=== PATIENT | female | born 1965 | race American Indian/Alaskan Native ===

== ENCOUNTER 2017-03-18 14:14 | Emergency (ER) | payer BC ==
--- NOTE | 2017-03-18 19:53 | Emergency Department Report ---
HPI - General Chief Complaint: Allergic Reaction Time Seen by Provider: 03/18/17 18:17 - HPI HPI: 52-year-old female past medical history obesity, prediabetes, hypertension, eczema presents with complaint of one month of progressively pulp drier skin. Patient denies any fevers chills nausea vomiting denies any recent travel. States that she was started on metformin over a month ago to control her A1c as per her primary care doctor. Patient states that over the last 3 weeks she has noticed that she has developed slightly itchy ear skin than usual at baseline. Patient has chronic itchy skin due to eczema on her joints upper extremities and hands. Patient states that she has noticed slight dark discoloration around her neck back and upper extremities in patches and plaques associated with "ashy" skin. Patient denies any significant swelling of her face lips denies any overt hives. Patient denies any new cosmetics new pets any linens or new clothing. Patient is awake alert and oriented 3 not in acute distress no audible wheezing or stridor on exam. ED Past Medical Hx - Past Medical History Hx Hypertension: Yes Additional medical history: ECZEMA. OBESITY - Surgical History Additional Surgical History: hernia repair 2001, D&C in 1989, colonic polyps removed - Social History Smoking Status: Never Smoker Substance Use Type: None - Medications Home Medications: Home Medications Medication Instructions Recorded Confirmed Last Taken Type Albuterol Sulfate [Ventolin HFA] 2 puff IH Q4H PRN #1 hfa.aer.ad 08/03/13 Unknown Rx Amoxicillin [Trimox CAP] 500 mg PO BID #14 capsule 08/03/13 Unknown Rx Benzonatate [Tessalon] 200 mg PO Q8H #30 capsule 08/03/13 Unknown Rx Hydrocodone Bit/Acetaminophen 1 - 2 each PO Q4-6H PRN #12 tablet 08/03/13 Unknown Rx [Lortab 5-500 Tablet] Prednisone 40 mg PO QDAY #8 tablet 08/03/13 Unknown Rx hydrOXYzine HCL [Atarax] 25 mg PO Q6HR PRN #25 tablet 03/18/17 Unknown Rx ED Review of Systems ROS: Stated complaint: POSS ALLERGIC REACTION TO BP MEDS Other details as noted in HPI Constitutional: denies: chills, fever Eyes: denies: eye pain, eye discharge, vision change ENT: denies: ear pain, throat pain Respiratory: denies: cough, shortness of breath, wheezing Cardiovascular: denies: chest pain, palpitations Endocrine: no symptoms reported Gastrointestinal: denies: abdominal pain, nausea, diarrhea Genitourinary: denies: urgency, dysuria, discharge Musculoskeletal: denies: back pain, joint swelling, arthralgia Skin: as per HPI, rash. denies: lesions Neurological: denies: headache, weakness, paresthesias Psychiatric: denies: anxiety, depression Hematological/Lymphatic: denies: easy bleeding, easy bruising Physical Exam - Physical Exam Vital Signs: Vital Signs 03/18/17 14:55 Temperature 97.9 F Pulse Rate 107 H Respiratory 19 Rate Blood Pressure 111/76 O2 Sat by Pulse 97 Oximetry General: General: Well appearing, well nourished, in no distress. Oriented x 3, normal mood and affect . Ambulating without difficulty. Skin: brownish velvety hyperpigmentation of the skin near neck, back and upper arms, dry skin near joints Head: Normocephalic, atraumatic, no visible or palpable masses, depressions, or scaring. Pharynx: Mucosa non-inflamed, no tonsillar hypertrophy or exudate. oropharnyx is patent Neck: Supple, without lesions, bruits, or adenopathy, thyroid non-enlarged and non-tender Heart: No cardiomegaly or thrills; regular rate and rhythm, no murmur or gallop Lungs: Clear to auscultation b/l Abdomen: Bowel sounds normal, no tenderness, organomegaly, masses, or hernia Back: Spine normal without deformity or tenderness, no CVA tenderness Musculoskeletal: Normal gait and station. Neurologic: CN 2-12 normal. Sensation to pain, touch, and proprioception normal. DTRs normal in upper and lower extremities. No pathologic reflexes. ED Course Vital Signs 03/18/17 14:55 Temperature 97.9 F Pulse Rate 107 H Respiratory 19 Rate Blood Pressure 111/76 O2 Sat by Pulse 97 Oximetry ED Medical Decision Making - Medical Decision Making A/P: Acanthosis nigricans 1-as patient has a hemoglobin A1c of 6.5 and has been experiencing slightly hyperpigmented skin around skin folds patient likely is experiencing acanthosis nigricans development 2-patient has no overt systemic signs of illness other than dry her skin and hyperpigmented skin. Does not appear to be a desquamating rash. No fever or chills reported 3-hydroxyzine when necessary, I advised patient to remain well-hydrated and to maintain her current diabetes regimen as her primary doctor's advice. I advised patient to use Aquaphor skin lotion and a and D ointment to maintain hydration of her skin 4-I provided patient with information for dermatology follow-up Critical care attestation.: If time is entered above; I have spent that time in minutes in the direct care of this critically ill patient, excluding procedure time. ED Disposition Clinical Impression: Acanthosis nigricans Disposition: DISCHARGED TO HOME OR SELFCARE Is pt being admited?: No Does the pt Need Aspirin: No Condition: Stable Instructions: Itchy Skin (ED) Prescriptions: hydrOXYzine HCL [Atarax] 25 mg PO Q6HR PRN #25 tablet PRN Reason: Itching Referrals: CASSANDRA HERNÁNDEZ MD [Staff Physician] - 3-5 Days [facility] [Provider Group] - 3-5 Days Forms: Work/School Release Form(ED) Time of Disposition: 19:50
[2017-03-18 20:07] VITALS: BP 122/85
== END 2017-03-18 20:07 | disposition home or self-care (01) ==
LOC: ED 14:14
DX: L83 Acanthosis nigricans (principal); I10 Essential (primary) hypertension
CPT/HCPCS: 82962; 99282

== ENCOUNTER 2017-09-02 03:08 | Emergency (ER) | payer BC ==
[2017-09-02] MEDS ORDERED: XOPENEX IH ONE (03:52)
[2017-09-02] MEDS ORDERED: ATROVENT IH ONE (03:52)
[2017-09-02 03:58] LABS: Eosinophils % (Auto) 9.2 % (0.0-4.3); Hematocrit 41.8 % (30.3-42.9); Hemoglobin 13.9 gm/dl (10.1-14.3); Mean Corpuscular HGB Conc 33 % (30-34); Mean Corpuscular Hemoglobin 29 pg (28-32); Mean Corpuscular Volume 86 fl (79-97); Platelet Count 214 K/mm3 (140-440); Red Blood Count 4.87 M/mm3 (3.65-5.03); Red Cell Distribution Width 15.5 % (13.2-15.2); White Blood Count 10.4 K/mm3 (4.5-11.0)
--- NOTE | 2017-09-02 03:58 | Emergency Department Report ---
ED Shortness of Breath HPI - General Chief Complaint: Upper Respiratory Infection Stated Complaint: SOB Time Seen by Provider: 09/02/17 03:42 Source: patient Mode of arrival: Ambulatory Limitations: No Limitations - History of Present Illness Initial Comments: Patient is 52 years old female morbidly obese history of hypertension came to the ER with a 2 day history of cough and shortness of breath start all of a sudden. Patient stated that she went to an urgent care she was given a breathing treatment did help for minutes but not much higher shortness of breath is worse when she is coughing. Coughing is nonproductive. Patient denied fever, no nausea no vomiting. No chest pain. MD Complaint: shortness of breath, cough -: days(s) (2 days) Pain Scale: 4 Consistency: constant Improves With: nothing Worsens With: coughing - Related Data Previous Rx's Medication Instructions Recorded Last Taken Type Albuterol Sulfate [Ventolin HFA] 2 puff IH Q4H PRN #1 hfa.aer.ad 08/03/13 Unknown Rx Amoxicillin [Trimox CAP] 500 mg PO BID #14 capsule 08/03/13 Unknown Rx Benzonatate [Tessalon] 200 mg PO Q8H #30 capsule 08/03/13 Unknown Rx Hydrocodone Bit/Acetaminophen 1 - 2 each PO Q4-6H PRN #12 tablet 08/03/13 Unknown Rx [Lortab 5-500 Tablet] Prednisone 40 mg PO QDAY #8 tablet 08/03/13 Unknown Rx hydrOXYzine HCL [Atarax] 25 mg PO Q6HR PRN #25 tablet 03/18/17 Unknown Rx Allergies Allergy/AdvReac Type Severity Reaction Status Date / Time pineapple AdvReac Itching Verified 03/18/17 14:55 shrimp AdvReac LIPS / Verified 03/18/17 14:55 TONGUE TINGLE ED Review of Systems ROS: Stated complaint: SOB Other details as noted in HPI Comment: All other systems reviewed and negative Constitutional: denies: chills, fever Respiratory: cough, shortness of breath, SOB with exertion. denies: orthopnea Cardiovascular: dyspnea on exertion. denies: chest pain, palpitations, edema, paroxysmal nocturnal dyspnea Gastrointestinal: denies: abdominal pain, nausea, vomiting Neurological: denies: headache, weakness ED Past Medical Hx - Past Medical History Previous Medical History?: Yes Hx Hypertension: Yes Additional medical history: ECZEMA. OBESITY - Surgical History Past Surgical History?: Yes Additional Surgical History: hernia repair 2001, D&C in 1989, colonic polyps removed - Social History Smoking Status: Never Smoker Substance Use Type: None - Medications Home Medications: Home Medications Medication Instructions Recorded Confirmed Last Taken Type Albuterol Sulfate [Ventolin HFA] 2 puff IH Q4H PRN #1 hfa.aer.ad 08/03/13 Unknown Rx Amoxicillin [Trimox CAP] 500 mg PO BID #14 capsule 08/03/13 Unknown Rx Benzonatate [Tessalon] 200 mg PO Q8H #30 capsule 08/03/13 Unknown Rx Hydrocodone Bit/Acetaminophen 1 - 2 each PO Q4-6H PRN #12 tablet 08/03/13 Unknown Rx [Lortab 5-500 Tablet] Prednisone 40 mg PO QDAY #8 tablet 08/03/13 Unknown Rx hydrOXYzine HCL [Atarax] 25 mg PO Q6HR PRN #25 tablet 03/18/17 Unknown Rx ED Physical Exam - General Limitations: No Limitations General appearance: alert, in no apparent distress - Eye Eye exam: Present: normal appearance, PERRL - ENT ENT exam: Present: normal exam - Neck Neck exam: Present: normal inspection - Respiratory Respiratory exam: Present: decreased breath sounds, prolonged expiratory. Absent: wheezes, rales, rhonchi, stridor, chest wall tenderness, accessory muscle use - Cardiovascular Cardiovascular Exam: Present: regular rate, tachycardia - GI/Abdominal GI/Abdominal exam: Present: soft, normal bowel sounds. Absent: tenderness, guarding, rebound, rigid, mass, bruit, pulsatile mass, hernia - Back Exam Back exam: Present: normal inspection. Absent: CVA tenderness (R), CVA tenderness (L) - Neurological Exam Neurological exam: Present: alert, oriented X3, CN II-XII intact - Skin Skin exam: Present: warm, intact, normal color. Absent: cyanosis, diaphoretic, erythema, urticaria ED Course Vital Signs 09/02/17 09/02/17 09/02/17 03:13 03:39 04:29 Temperature 98.3 F 99.5 F Pulse Rate 130 H 126 H Pulse Rate [ 108 H Anterior Bilateral Throughout] Respiratory 20 20 Rate Respiratory 28 H Rate [Anterior Bilateral Throughout] Blood Pressure 148/86 117/68 [Right] O2 Sat by Pulse 98 98 Oximetry 09/02/17 09/02/17 04:43 05:31 Temperature 100.1 F H Pulse Rate 118 H Pulse Rate [ 117 H Anterior Bilateral Throughout] Respiratory 20 Rate Respiratory 28 H Rate [Anterior Bilateral Throughout] Blood Pressure 122/61 [Right] O2 Sat by Pulse 100 Oximetry - Reevaluation(s) Reevaluation #1: 09/02/17 05:43 Patient stated that she is feeling much better after the treatment. ED Medical Decision Making - Lab Data Result diagrams: 09/02/17 03:35 09/02/17 03:35 Critical care attestation.: If time is entered above; I have spent that time in minutes in the direct care of this critically ill patient, excluding procedure time. ED Disposition Clinical Impression: Shortness of breath, Bronchitis, acute Disposition: DC-01 TO HOME OR SELFCARE Is pt being admited?: No Condition: Stable Instructions: Acute Bronchitis (ED)
[2017-09-02 04:10] LABS: Magnesium 1.7 mg/dL (1.7-2.3)
[2017-09-02 04:13] LABS: Anion Gap 18 mmol/L; BUN/Creatinine Ratio 24; Blood Urea Nitrogen 19 mg/dL (7-17); Calcium 8.4 mg/dL (8.4-10.2); Carbon Dioxide 29 mmol/L (22-30); Chloride 95.3 mmol/L (98-107); Glucose 153 mg/dL (65-100); Potassium 4.2 mmol/L (3.6-5.0); Sodium 138 mmol/L (137-145)
--- NOTE | 2017-09-02 04:58 | Cat Scan Report ---
FINAL REPORT EXAM: CT CHEST WO CON HISTORY: chest,sob, hital hernia, abnormal CXR TECHNIQUE: CT imaging obtained through the chest without contrast. Transaxial, Coronal and sagittal reformats are provided. PRIORS: Chest radiograph of the same date FINDINGS: Mediastinum is remarkable for coronary artery disease. No pericardial effusion. No hiatal hernia. Thoracic aorta is normal in course and caliber. No pneumothorax, effusion or focal airspace disease. Hypoaeration of the left greater than right lung. Left basilar atelectasis/scarring. The central airways are patent. No bronchiectasis. Imaged portion of the upper abdomen is remarkable for elevation of the left hemidiaphragm. The superficial soft tissues are remarkable for left axillary and chest wall lymphadenopathy measuring up to 23 x 17 millimeters on axial image 23 and 38 x 21 millimeters on axial image 27. No acute bony abnormality or worrisome osseous lesions identified. IMPRESSION: Chronic elevation of left hemidiaphragm with associated left basilar atelectasis. If patient has chronic respiratory symptoms there felt related, pulmonology consultation may be helpful. No hiatal hernia or acute pulmonary finding. Coronary artery disease. Enlarged left axillary lymph nodes. Left breast mammographic correlation is suggested. Follow-up ultrasound may be warranted.
[2017-09-02 05:31] VITALS: BP 122/61
== END 2017-09-02 06:27 | disposition home or self-care (01) ==
LOC: ED 03:08
DX: J20.9 Acute bronchitis, unspecified (principal); R06.02 Shortness of breath; I10 Essential (primary) hypertension; Z91.013 Allergy to seafood; Z91.018 Allergy to other foods
CPT/HCPCS: 36415; 71020; 71250; 80048; 82140; 82805; 83735; 83880; 84484; 85025; 93005; 93010; 94640; 96372; 99285; J2930

== ENCOUNTER 2018-06-18 11:49 | Emergency (ER) | payer BC ==
[2018-06-18] MEDS ORDERED: MOTRIN PO ONE (17:39)
--- NOTE | 2018-06-18 17:39 | Emergency Department Report ---
Abscess Boil HPI - HPI Chief Complaint: Skin/Abscess/Foreign Body Stated Complaint: INFECTION RT HAND/PAIN Time Seen by Provider: 06/18/18 16:44 Duration: >1 Week (3 weeks) Location: Upper Extremity (right middle finger distally.) Severity: Moderate (5/10) History: Yes Pain (tip of right middle finger), Yes Previous History, No Fever, No Purulent Drainage, No Numbness, No Foreign Body, No Insect Bite HPI: This is a 53-year-old female here report that she has an infection around her nail bed and her right middle finger where she injured side. She says she tried to soak it but nothing is abdomen. She states that she was seen by her primary care physician and she was told to soak the area but it is not working. She said this is been 3 weeks and pain is 5 out of 10 and throbbing. Tetanus vaccine is up-to-date less than 5 years. Denies any fever or chills or any numbness or tingling. Patient was seen at urgent care and she was told to go to the emergency room. Denies any restriction in movement or any radiation of pain proximally. Pain is worse with touch and movement bed or resting. No medication taken. Home Medications: Previous Rx's Medication Instructions Recorded Last Taken Type Albuterol Sulfate [Ventolin HFA] 2 puff IH Q4H PRN #1 hfa.aer.ad 08/03/13 Unknown Rx Amoxicillin [Trimox CAP] 500 mg PO BID #14 capsule 08/03/13 Unknown Rx Benzonatate [Tessalon] 200 mg PO Q8H #30 capsule 08/03/13 Unknown Rx Hydrocodone Bit/Acetaminophen 1 - 2 each PO Q4-6H PRN #12 tablet 08/03/13 Unknown Rx [Lortab 5-500 Tablet] Prednisone 40 mg PO QDAY #8 tablet 08/03/13 Unknown Rx hydrOXYzine HCL [Atarax] 25 mg PO Q6HR PRN #25 tablet 03/18/17 Unknown Rx ALBUTEROL Inhaler [ProAir HFA 2 puff IH QID PRN #1 inhalation 09/02/17 Unknown Rx Inhaler] Prednisone [predniSONE 10 mg 10 mg PO .TAPER #1 tab.ds.pk 09/02/17 Unknown Rx (6-Day Pack, 21 Tabs)] guaiFENesin/CODEINE [Robitussin AC] 10 ml PO TID PRN #100 ml 09/02/17 Unknown Rx levoFLOXacin [Levaquin TAB] 500 mg PO QDAY #7 tablet 09/02/17 Unknown Rx Ibuprofen [Motrin] 600 mg PO Q8H PRN #12 tablet 06/18/18 Unknown Rx cephALEXin [Keflex] 500 mg PO Q8HR 7 Days #21 cap 06/18/18 Unknown Rx Allergies/Adverse Reactions: Allergies Allergy/AdvReac Type Severity Reaction Status Date / Time pineapple Allergy Itching Verified 06/18/18 12:13 shrimp Allergy LIPS / Verified 06/18/18 12:13 TONGUE TINGLE ED Review of Systems ROS: Stated complaint: INFECTION RT HAND/PAIN Other details as noted in HPI Constitutional: denies: chills, fever Respiratory: denies: cough, shortness of breath, SOB with exertion, wheezing Cardiovascular: denies: chest pain, palpitations, edema, syncope Gastrointestinal: denies: nausea, vomiting Musculoskeletal: joint swelling, arthralgia. denies: back pain, myalgia Skin: other (abscess around fingernail). denies: rash, lesions Neurological: denies: weakness, numbness, paresthesias Psychiatric: denies: anxiety, depression Hematological/Lymphatic: denies: easy bleeding, easy bruising ED Past Medical Hx - Past Medical History Previous Medical History?: Yes Hx Hypertension: Yes Additional medical history: ECZEMA. OBESITY - Surgical History Past Surgical History?: Yes Additional Surgical History: hernia repair 2001, D&C in 1989, colonic polyps removed - Family History Family history: hypertension - Social History Smoking Status: Never Smoker Substance Use Type: None - Medications Home Medications: Home Medications Medication Instructions Recorded Confirmed Last Taken Type Albuterol Sulfate [Ventolin HFA] 2 puff IH Q4H PRN #1 hfa.aer.ad 08/03/13 Unknown Rx Amoxicillin [Trimox CAP] 500 mg PO BID #14 capsule 08/03/13 Unknown Rx Benzonatate [Tessalon] 200 mg PO Q8H #30 capsule 08/03/13 Unknown Rx Hydrocodone Bit/Acetaminophen 1 - 2 each PO Q4-6H PRN #12 tablet 08/03/13 Unknown Rx [Lortab 5-500 Tablet] Prednisone 40 mg PO QDAY #8 tablet 08/03/13 Unknown Rx hydrOXYzine HCL [Atarax] 25 mg PO Q6HR PRN #25 tablet 03/18/17 Unknown Rx ALBUTEROL Inhaler [ProAir HFA 2 puff IH QID PRN #1 inhalation 09/02/17 Unknown Rx Inhaler] Prednisone [predniSONE 10 mg 10 mg PO .TAPER #1 tab.ds.pk 09/02/17 Unknown Rx (6-Day Pack, 21 Tabs)] guaiFENesin/CODEINE [Robitussin AC] 10 ml PO TID PRN #100 ml 09/02/17 Unknown Rx levoFLOXacin [Levaquin TAB] 500 mg PO QDAY #7 tablet 09/02/17 Unknown Rx Ibuprofen [Motrin] 600 mg PO Q8H PRN #12 tablet 06/18/18 Unknown Rx cephALEXin [Keflex] 500 mg PO Q8HR 7 Days #21 cap 06/18/18 Unknown Rx ED Abscess Boil Physical Exam - Exam General: Vital signs noted. No distress. Alert and acting appropriately. This is a 53-year-old female well-nourished well-developed in no acute distress. Front/Back of Body, Lg (Color): 1 - Patient with indurated fluctuant area to right middle finger at and around nailbed. Tender to palpate with erythema. No drainage noted. Nail intact on bed. No subungual hematoma noted. Tetanus vaccine is up-to-date. Size: 1 cm Exam: Yes Tenderness (right middle finger around nailbed.), Yes Fluctuance ( right middle finger around nailbed.), Yes Surrounding Cellulites/Erythema ( right middle finger around nailbed.), Yes Heart Murmur (S1, S2. Regular rhythm) , Yes Normal Neurologic Exam (alert and oriented 3 and normal gait), Yes Normal Circulation (No cce. + 2 pulses in all extremities, no neurovascular compromise except for right middle finger at distal tuft and around nailbed with indurated and fluctuant area.), No Lymphangitis, No Crepitation I & D Note - I & D Note I & D Note: Incision and drainage procedure. Under sterile procedure, right distal middle finger nailbed times with normal saline, iodine and normal saline and #18-gauge needle used to make a small opening in the center and express small amount of pus. Induration has resolved and patient said finger feels better. Tetanus vaccine is up-to-date. They are cleansed with saline and sterile nonadhesive dressing placed to the site. ED Course Vital Signs 06/18/18 12:13 Temperature 97.8 F Pulse Rate 116 H Respiratory 16 Rate Blood Pressure 123/71 O2 Sat by Pulse 98 Oximetry - Reevaluation(s) Reevaluation #1: 06/18/18 17:47 Patient given Motrin 800 mg by mouth for pain in emergency room. Critical care attestation.: If time is entered above; I have spent that time in minutes in the direct care of this critically ill patient, excluding procedure time. ED Medical Decision Making - Medical Decision Making This is a 53-year-old female here for that she is infected to her right distal middle finger nailbed for 3 weeks and she has been soaking the area with some small without any results. She states that she went to her primary care in urgent care and urgent care center to the emergency room. Patient was seen and examined by myself and found to have paronychia for her for middle finger distally. -Procedure for incision and drainage done under sterile procedure. See procedure note for details. -Motrin 800 mg by mouth for pain and was sent home on Motrin. -Will discharge home on Keflex to treat infection -Tetanus vaccine up-to-date less than 2 years. -I discussed the patient to follow up with her primary care physician in 2-3 days and if infection worsens to return to the emergency room and she voiced understanding. I also discussed with her to keep affected area clean and dry and should make sure she takes her antibiotic as prescribed. ED Disposition Clinical Impression: Paronychia of right middle finger Disposition: DC-01 TO HOME OR SELFCARE Is pt being admited?: No Does the pt Need Aspirin: No Condition: Stable Instructions: Paronychia (ED), Acute Wound Care (ED) Additional Instructions: Please see discharge instruction in acute wound care Apply warm compresses to affected area 4 times a day to facilitate then and increased drainage Keep affected area clean and dry Motrin for pain and please take medication with food to prevent nausea or irritation to stomach lining Take Keflex for infection Return to the emergency room if, he developed fever, chills, increased pain and drainage from site, nausea and vomited, increase in redness and/or weakness. Referrals: PRIMARY CARE,MD [Primary Care Provider] - 2-3 Days Forms: Work/School Release Form(ED)
[2018-06-18 18:01] VITALS: BP 128/68
== END 2018-06-18 17:59 | disposition home or self-care (01) ==
LOC: ED 11:49
DX: L03.011 Cellulitis of right finger (principal); I10 Essential (primary) hypertension; Z91.013 Allergy to seafood; Z91.018 Allergy to other foods; Z79.899 Other long term (current) drug therapy
CPT/HCPCS: 99282

== ENCOUNTER 2020-06-24 10:56 | Outpatient (CLI) | payer BC ==
--- NOTE | 2020-06-24 12:01 | Mammography Report ---
DIGITAL DIAGNOSTIC MAMMOGRAM, -- 06/24/2020 INDICATION: Follow-up of indeterminate right breast calcifications. TECHNIQUE: Digital right mammographic imaging was performed. Magnification views were obtained. COMPARISON: 05/06/2020, 01/24/2019 FINDINGS: Breast Density: The breasts are almost entirely fatty. There is no evidence of dominant mass, suspicious calcifications or architectural distortion in the r ight breast. The previously described cluster of calcifications in the 4-5:00 position have a benign appearance without significant interval change. Additional benign calcifications seen elsewhere in th e right breast are stable. IMPRESSION: No evidence of malignancy. Benign findings as above. Return to annual screening mammography is recomm ended. Recommended Follow-Up: Back to schedule. BI-RADS Category 2: Benign. A "normal" or negative report should not discourage follow up or biopsy of a clinically significant f inding. A written summary of these findings will be mailed to the patient. The patient will be entered into a mammography reporting system which will generate a reminder letter for the patient's next appointmen t at the appropriate interval. According to the [employer], yearly mammograms are recommended starting at age 40 and continuing as long as a woman is in good health. Breast MRI is recommended for women with an emmy roximately 20-25% or greater lifetime risk of breast cancer, including women with a strong family his tory of breast or ovarian cancer and women who have been treated for Hodgkin's disease. Signer Name: Dick Kumar MD Signed: 06/24/2020 11:56 AM Workstation Name: [id number]
== END 2020-06-24 10:57 | disposition home or self-care (01) ==
LOC: MAMMO 10:56
PROVIDERS: ATTEND Internal Medicine
DX: R92.2 Inconclusive mammogram (principal)

== ENCOUNTER 2021-11-04 17:56 | Emergency (ER) | payer BC | END 2021-11-04 22:30 | disposition left against medical advice (07) | LOC: ED 17:56 | DX: R03.0 Elevated blood-pressure reading, without diagnosis of hypertension (principal); Z53.21 Procedure and treatment not carried out due to patient leaving prior to being seen by health care provider ==

== ENCOUNTER 2022-06-06 21:29 | Emergency (ER) | payer BC ==
[2022-06-07 01:52] VITALS: BP 129/59
--- NOTE | 2022-06-07 03:18 | Emergency Department Report ---
ED General Adult HPI - General Chief complaint: High BP Stated complaint: HIGH BP Time Seen by Provider: 06/07/22 01:44 Source: patient Mode of arrival: Ambulatory Limitations: No Limitations - History of Present Illness Initial comments: 57-year-old female with elevated BMI presents emerged department complaining of a feeling of elevated blood pressure dizziness no hemoptysis symptoms hematochezia, no chest pain palpitation, no nausea vomiting -: Gradual Radiation: non-radiation Severity scale (0 -10): 0 Consistency: constant Improves with: none Worsens with: none Associated Symptoms: denies other symptoms Treatments Prior to Arrival: none - Related Data Previous Rx's Medication Instructions Recorded Last Taken Type Albuterol Sulfate [Ventolin HFA] 2 puff IH Q4H PRN #1 hfa.aer.ad 08/03/13 Unknown Rx Amoxicillin [Trimox CAP] 500 mg PO BID #14 capsule 08/03/13 Unknown Rx Benzonatate [Tessalon] 200 mg PO Q8H #30 capsule 08/03/13 Unknown Rx Hydrocodone Bit/Acetaminophen 1 - 2 each PO Q4-6H PRN #12 tablet 08/03/13 Unknown Rx [Lortab 5-500 Tablet] Prednisone 40 mg PO QDAY #8 tablet 08/03/13 Unknown Rx hydrOXYzine HCL [Atarax] 25 mg PO Q6HR PRN #25 tablet 03/18/17 Unknown Rx Albuterol Mdi (or & Nicu Only) 2 puff IH QID PRN #1 inhalation 09/02/17 Unknown Rx [ProAir HFA Inhaler] Prednisone [predniSONE 10 mg 10 mg PO .TAPER #1 tab.ds.pk 09/02/17 Unknown Rx (6-Day Pack, 21 Tabs)] guaiFENesin/CODEINE [Robitussin AC] 10 ml PO TID PRN #100 ml 09/02/17 Unknown Rx levoFLOXacin [Levaquin TAB] 500 mg PO QDAY #7 tablet 09/02/17 Unknown Rx Ibuprofen [Motrin] 600 mg PO Q8H PRN #12 tablet 06/18/18 Unknown Rx cephALEXin [Keflex] 500 mg PO Q8HR 7 Days #21 cap 06/18/18 Unknown Rx Allergies Allergy/AdvReac Type Severity Reaction Status Date / Time pineapple Allergy Itching Verified 06/18/18 12:13 shrimp Allergy LIPS / Verified 06/18/18 12:13 TONGUE TINGLE ED Review of Systems ROS: Stated complaint: HIGH BP Other details as noted in HPI Comment: All other systems reviewed and negative Constitutional: denies: chills, fever Eyes: denies: eye pain, eye discharge, vision change ENT: denies: ear pain, throat pain Respiratory: denies: cough, shortness of breath, wheezing Cardiovascular: denies: chest pain, palpitations Endocrine: no symptoms reported Gastrointestinal: denies: abdominal pain, nausea, diarrhea Genitourinary: denies: urgency, dysuria, discharge Musculoskeletal: denies: back pain, joint swelling, arthralgia Skin: denies: rash, lesions Neurological: denies: headache, weakness, paresthesias Psychiatric: denies: anxiety, depression Hematological/Lymphatic: denies: easy bleeding, easy bruising ED Past Medical Hx - Past Medical History Hx Hypertension: Yes Hx Diabetes: Yes Additional medical history: ECZEMA. OBESITY - Surgical History Additional Surgical History: hernia repair 2001, D&C in 1989, colonic polyps removed - Social History Smoking Status: Unknown if ever smoked - Medications Home Medications: Home Medications Medication Instructions Recorded Confirmed Last Taken Type Albuterol Sulfate [Ventolin HFA] 2 puff IH Q4H PRN #1 hfa.aer.ad 08/03/13 Unknown Rx Amoxicillin [Trimox CAP] 500 mg PO BID #14 capsule 08/03/13 Unknown Rx Benzonatate [Tessalon] 200 mg PO Q8H #30 capsule 08/03/13 Unknown Rx Hydrocodone Bit/Acetaminophen 1 - 2 each PO Q4-6H PRN #12 tablet 08/03/13 Unknown Rx [Lortab 5-500 Tablet] Prednisone 40 mg PO QDAY #8 tablet 08/03/13 Unknown Rx hydrOXYzine HCL [Atarax] 25 mg PO Q6HR PRN #25 tablet 03/18/17 Unknown Rx Albuterol Mdi (or & Nicu Only) 2 puff IH QID PRN #1 inhalation 09/02/17 Unknown Rx [ProAir HFA Inhaler] Prednisone [predniSONE 10 mg 10 mg PO .TAPER #1 tab.ds.pk 09/02/17 Unknown Rx (6-Day Pack, 21 Tabs)] guaiFENesin/CODEINE [Robitussin AC] 10 ml PO TID PRN #100 ml 09/02/17 Unknown Rx levoFLOXacin [Levaquin TAB] 500 mg PO QDAY #7 tablet 09/02/17 Unknown Rx Ibuprofen [Motrin] 600 mg PO Q8H PRN #12 tablet 06/18/18 Unknown Rx cephALEXin [Keflex] 500 mg PO Q8HR 7 Days #21 cap 06/18/18 Unknown Rx ED Physical Exam - General Limitations: No Limitations General appearance: alert, in no apparent distress - Head Head exam: Present: atraumatic, normocephalic - Eye Eye exam: Present: normal appearance, PERRL, EOMI Pupils: Present: normal accommodation - ENT ENT exam: Present: normal exam, mucous membranes moist - Neck Neck exam: Present: normal inspection - Respiratory Respiratory exam: Present: normal lung sounds bilaterally. Absent: respiratory distress - Cardiovascular Cardiovascular Exam: Present: regular rate, normal rhythm. Absent: systolic murmur, diastolic murmur, rubs, gallop - GI/Abdominal GI/Abdominal exam: Present: soft, normal bowel sounds - Extremities Exam Extremities exam: Present: normal inspection - Back Exam Back exam: Present: normal inspection - Neurological Exam Neurological exam: Present: alert, oriented X3 - Psychiatric Psychiatric exam: Present: normal affect, normal mood - Skin Skin exam: Present: warm, dry, intact, normal color. Absent: rash ED Course Vital Signs 06/06/22 06/07/22 22:12 01:51 Temperature 97.4 F L 98.2 F Pulse Rate 95 H 80 Respiratory 14 16 Rate Blood Pressure 155/92 Blood Pressure 155/92 129/59 [Right] O2 Sat by Pulse 92 96 Oximetry Critical care attestation.: If time is entered above; I have spent that time in minutes in the direct care of this critically ill patient, excluding procedure time. ED Disposition Clinical Impression: HTN (hypertension) Disposition: 01 HOME / SELF CARE / HOMELESS Is pt being admited?: No Does the pt Need Aspirin: No Condition: Stable Instructions: Hypertension, Adult, [id number], Hypertension (ED) Additional Instructions: You are seen evaluated department for hypertension. Initial blood pressure was in the 150s over 190s which improved to a normal range. Please be sure to follow-up with your primary care provider to reevaluate the possibility of hyper tension blood pressure requires no intervention at this present time. Referrals: ESTRELLA DELUNA MD [Staff Physician] - 3-5 Days
--- NOTE | 2022-06-07 14:44 | Electrocardiograph Report ---
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
== END 2022-06-07 03:50 | disposition home or self-care (01) ==
LOC: ED 21:29
DX: I10 Essential (primary) hypertension (principal); E11.9 Type 2 diabetes mellitus without complications; Z91.02 Food additives allergy status; Z91.013 Allergy to seafood
CPT/HCPCS: 93005; 99282